=== PATIENT | male | born 1965 | race Caucasian/White ===

== ENCOUNTER → 2017-01-24 | Outpatient (CLI) | payer MEDICARE, OTHER | LOC: CT 09:27 → KOH-I 01-27 10:30 | DX: C18.2 Malignant neoplasm of ascending colon (principal); C77.2 Secondary and unspecified malignant neoplasm of intra-abdominal lymph nodes; K40.90 Unilateral inguinal hernia, without obstruction or gangrene, not specified as recurrent; R91.8 Other nonspecific abnormal finding of lung field | CPT/HCPCS: J7050; Q9962 ==

== ENCOUNTER 2020-10-07 19:27 | Emergency (ER) | payer MEDICARE, OTHER | END 2020-10-07 20:09 | disposition left against medical advice (07) | LOC: ER1 19:27 | DX: S30.0XXA Contusion of lower back and pelvis, initial encounter (principal); R63.0 Anorexia; X58.XXXA Exposure to other specified factors, initial encounter; Z53.21 Procedure and treatment not carried out due to patient leaving prior to being seen by health care provider ==